=== PATIENT | female | born 1965 | race Caucasian/White ===

== ENCOUNTER 2019-08-15 07:35 | Emergency (ER) | payer OTHER ==
[~2019-08-15] VITALS: Ht 165.1 cm; Wt 95.3 kg
== END 2019-08-15 13:33 | disposition home or self-care (01) ==
LOC: ER 07:35
DX: R05 Cough (principal)

== ENCOUNTER 2023-08-30 10:02 | Emergency (ER) | payer OTHER ==
[~2023-08-30] VITALS: Ht 165.1 cm; Wt 93.0 kg
[2023-08-30] MEDS ORDERED: HYDROCHLOROTHIA25 MG PO (10:20)
[2023-08-30] MEDS ORDERED: LOSARTAN POTASS25 MG PO (10:20)
[2023-08-30] MEDS ORDERED: GUAIFENESIN/DEXTROMETHORPHAN 100 MG/5 ML ML PO STA (11:37)
[2023-08-30] MEDS ORDERED: CEFTRIAXONE SODIUM 1,000 MG VIAL IM STA (11:38)
[2023-08-30] MEDS ORDERED: DEXAMETHASONE SODIUM PHOSPHATE 4 MG/ML VIAL IM STA (11:38)
[2023-08-30] MEDS ORDERED: CETIRIZINE HCL 5 MG/5 ML ML PO STA (11:38)
[2023-08-30 12:15] LABS: HEMATOCRIT 38.5 % (36.0-45.00); HEMOGLOBIN 12.9 g/dL (12.0-15.00); MEAN CELL VOLUME 86.7 fL (80.00-100.00); MEAN CORPUSCULAR HEMOGLOBIN 29.2 pg (27.00-32.0); MEAN CORPUSCULAR HGB CONC 33.6 g/dl (32.0-36.0); PLATELET COUNT 257 K/uL (150-450); RED BLOOD COUNT 4.43 M/uL (4.00-6.00); RED CELL DISTRIBUTION WIDTH 13.8 % (11.5-14.5)
[2023-08-30] MEDS ORDERED: ZYRTEC10 M3 PO (13:04)
[2023-08-30] MEDS ORDERED: MOLNUPIRAVIR (200 MG PO (13:04)
[2023-08-30] MEDS ORDERED: MUCINEX DM ER1 EAC1 PO (13:04)
[2023-08-30] MEDS ORDERED: ACETAMINOPHEN500 M1 PO (13:04)
[2023-08-30] MEDS ORDERED: AZITHROMYCIN500 MG PO (13:04)
== END 2023-08-30 13:13 | disposition home or self-care (01) ==
LOC: ER 10:03
PROVIDERS: General Practice
DX: U07.1 COVID-19 (principal); I10 Essential (primary) hypertension; Z87.09 Personal history of other diseases of the respiratory system; Z91.011 Allergy to milk products